=== PATIENT | male | born 1955 | race Caucasian/White ===

== ENCOUNTER → 2024-06-06 | Outpatient (CLI) | payer MEDICARE ==
--- NOTE | 2024-06-06 08:13 | US ---
EXAMINATION TYPE: US Aorta Screening DATE OF EXAM: 06/06/2024 COMPARISON: NONE CLINICAL INDICATION: Male, 69 years old with history of Z13.6 Screening for cardiovascular disorders; AAA screening, smoker TECHNIQUE: Multiple sonographic images of the abdominal aorta are obtained with grayscale and color D oppler imaging. FINDINGS: EXAM MEASUREMENTS: Abdominal Aorta: Proximal: 1.9 x 2.2 cm Mid: 1.6 x 1.9 cm Distal: 2.0 x 2.1 cm Bifurcation: Right Iliac: 1.1 x 1.3 cm Left Iliac: 1.1 x 1.2 cm [employer] OPERATOR NOTES: Pt very gassy Aortic wall calcifications without evidence of AAA at this time IMPRESSION: No evidence for aortic aneurysm. No further workup recommended for negative screening aortic aneurysm ultrasound. [facility], , 06/06/2024 8:11 AM
== END | disposition home or self-care (01) ==
LOC: RADUSWWP 06:58
PROVIDERS: ATTEND Family Medicine
DX: Z13.6 Encounter for screening for cardiovascular disorders (principal)
CPT/HCPCS: 76706